=== PATIENT | female | born 1995 | race Caucasian/White ===

== ENCOUNTER 2019-12-09 13:18 | Emergency (ER) | payer OTHER ==
[~2019-12-09] VITALS: Ht 165.1 cm; Wt 60.1 kg
--- NOTE | 2019-12-09 14:15 | NUR ---
SURGICAL APPLIANCE FITTER: PT AMBULATORY WITH STEADY GAIT TO ROOM AT THIS TIME. ROVERTO
[2019-12-09 15:24] VITALS: BP 120/77
--- NOTE | 2019-12-09 15:25 | NUR ---
US complete, pt comfortable, no needs at this time.
== END 2019-12-09 16:18 | disposition home or self-care (01) ==
LOC: ED 15:19
DX: M79.662 Pain in left lower leg (principal); M79.89 Other specified soft tissue disorders
CPT/HCPCS: 99284

== ENCOUNTER 2020-10-24 10:02 | Outpatient (CLI) | payer OTHER ==
[~2020-10-24] VITALS: Ht 165.1 cm; Wt 64.1 kg
[2020-10-24 10:13] VITALS: BP 110/67
[2020-10-24 10:50] VITALS: BP 110/67
[2020-10-24] MEDS ORDERED: PREN1TAB10 PO (12:13)
== END 2020-10-24 12:27 | disposition home or self-care (01) ==
LOC: LDOP 10:02
PROVIDERS: ATTEND Obstetrics & Gynecology Maternal & Fetal Medicine
DX: O36.5930 Maternal care for other known or suspected poor fetal growth, third trimester, not applicable or unspecified (principal); Z3A.33 33 weeks gestation of pregnancy
CPT/HCPCS: 59025; 76819

== ENCOUNTER 2020-11-12 10:37 | Outpatient (CLI) | payer OTHER ==
[~2020-11-12] VITALS: Ht 165.1 cm; Wt 64.5 kg
[~2020-11-12 10:37] MED LIST: PREN1TAB10 PO
[2020-11-12 11:04] VITALS: BP 108/63
== END 2020-11-12 11:44 | disposition home or self-care (01) ==
LOC: LDOP 10:37
PROVIDERS: ATTEND Obstetrics & Gynecology Maternal & Fetal Medicine
DX: Z34.93 Encounter for supervision of normal pregnancy, unspecified, third trimester (principal); Z3A.36 36 weeks gestation of pregnancy
CPT/HCPCS: 59025

== ENCOUNTER 2020-11-27 09:02 | Outpatient (CLI) | payer OTHER ==
[~2020-11-27] VITALS: Ht 165.1 cm; Wt 65.0 kg
[2020-11-27 09:27] VITALS: BP 116/69
== END 2020-11-27 10:10 | disposition home or self-care (01) ==
LOC: LDOP 09:02
PROVIDERS: ATTEND Obstetrics & Gynecology Maternal & Fetal Medicine
DX: O36.5930 Maternal care for other known or suspected poor fetal growth, third trimester, not applicable or unspecified (principal); Z3A.38 38 weeks gestation of pregnancy
CPT/HCPCS: 59025; 76819

== ENCOUNTER 2020-12-04 15:23 | Outpatient (CLI) | payer OTHER ==
[~2020-12-04] VITALS: Ht 165.1 cm; Wt 65.0 kg
[2020-12-04] MEDS ORDERED: PLEASE ENTER HEIGHT AND WEIGHT MC SCH (18:00)
[2020-12-04] MEDS ORDERED: TERBUTALINE 1 MG/ML, 1ML SQ ONE (18:00)
== END 2020-12-04 17:05 | disposition home or self-care (01) ==
LOC: LDOP 15:23
PROVIDERS: ATTEND Obstetrics & Gynecology Maternal & Fetal Medicine
DX: Z34.93 Encounter for supervision of normal pregnancy, unspecified, third trimester (principal); Z3A.38 38 weeks gestation of pregnancy
CPT/HCPCS: 59025; 76815

== ENCOUNTER 2020-12-08 07:58 | Inpatient (IN) | payer OTHER ==
[~2020-12-08] VITALS: Ht 165.1 cm; Wt 65.0 kg
[2020-12-08] MEDS ORDERED: MISOPROSTOL 25 MCG TABLET ONE (20:22)
[2020-12-08] MEDS ORDERED: D5%-LACTATED RINGERS 1,000 ML IV SCH (20:30)
[2020-12-08] MEDS ORDERED: TERBUTALINE 1 MG/ML, 1ML IVPush PRN (20:30)
[2020-12-08] MEDS ORDERED: CALCIUM CARBONATE 500 MG TAB.CHEW PO PRN (20:30)
[2020-12-08] MEDS ORDERED: FENTANYL PF 100 MCG/2ML IVPush PRN (20:30)
[2020-12-08] MEDS ORDERED: SODIUM CITRATE/CITRIC ACID 30 ML UDC PO PRN (20:30)
[2020-12-08] MEDS ORDERED: ONDANSETRON 2MG/ML, 2ML IVPush PRN (20:30)
[2020-12-08] MEDS: LACTATED RINGERS 1,000 ML IV SCH (20:30)
[2020-12-08] MEDS ORDERED: TERBUTALINE 1 MG/ML, 1ML SQ PRN (20:30)
[2020-12-08] MEDS ORDERED: OXYTOCIN 30U/ 0.9% NaCL 500ML 500 ML IV ONE (20:30)
[2020-12-08] MEDS ORDERED: METOCLOPRAMIDE 5 MG/ML, 2ML IVPush PRN (20:30)
[2020-12-08] MEDS ORDERED: PLEASE ENTER HEIGHT AND WEIGHT MC SCH (20:30)
[2020-12-08 20:46] LABS: BASOPHILS % (AUTO) 1 % (0-1); EOSINOPHILS % (AUTO) 1 % (1-7); LYMPHOCYTES % (AUTO) 24 % (22-44); MEAN CORPUSCULAR HEMOGLOBIN 31.4 pg (27.0-34.8); MEAN CORPUSCULAR HGB CONC 35.4 g/dL (32.4-35.8); MEAN PLATELET VOLUME 9.9 fL (7.4-10.4); MONOCYTES % (AUTO) 8 % (2-9); NEUTROPHILS % (AUTO) 67 % (42-75); PLATELET COUNT 172 x10^3/uL (130-400); RED BLOOD COUNT 4.01 x10^6/uL (3.82-5.3); RED CELL DISTRIBUTION WIDTH 14.4 % (9.6-15.2)
[2020-12-08] MEDS ORDERED: MISOPROSTOL 200 MCG TABLET ONE (21:17)
[2020-12-08] MEDS ORDERED: LIDOCAINE 1%, 20ML ONE (21:17)
[2020-12-08] MEDS ORDERED: NEWBORN KIT ONE (21:17)
[2020-12-08] MEDS ORDERED: MISOPROSTOL 25 MCG TABLET VG PRN (21:30)
[2020-12-08] MEDS ORDERED: DIPHENHYDRAMINE 50 MG/ML, 1ML IVPush PRN (21:30)
[2020-12-08] MEDS ORDERED: DOCU-131 PO (21:50)
[2020-12-08] MEDS ORDERED: ACYC500V OP (21:50)
[2020-12-08 21:53] VITALS: BP 120/70
[2020-12-09] MEDS: LACTATED RINGERS 1,000 ML IV SCH (02:45)
[2020-12-09] MEDS: FENTANYL PF 100 MCG/2ML IV PRN ×2 (08:10→09:59)
[2020-12-09] MEDS ORDERED: FENTANYL PF 100 MCG/2ML IV PRN (08:30)
[2020-12-09] MEDS ORDERED: OXYTOCIN 30U/ 0.9% NaCL 500ML 500 ML ONE ×2 (09:28→10:54)
[2020-12-09] MEDS ORDERED: BUPIVACAINE 0.25% ONE (10:01)
[2020-12-09] MEDS ORDERED: FENTANYL/BUPIV./NS/PF 250 ML EPIDCONT ONE (10:01)
[2020-12-09] MEDS ORDERED: FENTANYL/BUPIV./NS/PF 250 ML EPIDCONT SCH (10:30)
[2020-12-09] MEDS ORDERED: LACTATED RINGERS 1,000 ML IVBOLUS PRN (10:30)
[2020-12-09] MEDS ORDERED: EPHEDRINE 50 MG/ML, 1ML IVPush PRN (10:30)
[2020-12-09] MEDS ORDERED: LACTATED RINGERS 1,000 ML IV SCH (10:30)
[2020-12-09] MEDS ORDERED: IBUPROFEN 600 MG TABLET ONE (10:53)
[2020-12-09] MEDS ORDERED: DIPH,PERTUSS(ACELL),TET VAC/PF NC IM-VACC PRN (11:00)
[2020-12-09] MEDS ORDERED: CARBOPROST TROMETHAMINE 250 MCG/ML, 1ML IM PRN (11:00)
[2020-12-09] MEDS ORDERED: METHYLERGONOVINE 0.2 MG/ML IM PRN (11:00)
[2020-12-09] MEDS ORDERED: ACETAMINOPHEN 325 MG TABLET PO PRN ×2 (11:00)
[2020-12-09] MEDS ORDERED: MISOPROSTOL 200 MCG TABLET PR PRN (11:00)
[2020-12-09] MEDS ORDERED: OXYcodone/APAP 5/325MG TABLET PO PRN ×2 (11:00)
[2020-12-09] MEDS ORDERED: SIMETHICONE 80 MG CHEW TAB PO PRN (11:00)
[2020-12-09] MEDS: OXYTOCIN 30U/ 0.9% NaCL 500ML 500 ML IV SCH ×2 (11:45→21:00)
[2020-12-09 13:10] VITALS: BP 104/67
[2020-12-09 17:00] VITALS: BP 109/73
[2020-12-09] MEDS: IBUPROFEN 600 MG TABLET PO PRN ×2 (17:02→23:33)
[2020-12-09 20:30] VITALS: BP 110/69
[2020-12-09] MEDS: DOCUSATE 100 MG CAPSULE PO PRN (23:33)
[2020-12-09 23:35] VITALS: BP 99/61
[2020-12-10 03:30] LABS: BASOPHILS % (AUTO) 1 % (0-1); EOSINOPHILS % (AUTO) 1 % (1-7); LYMPHOCYTES % (AUTO) 24 % (22-44); MEAN CORPUSCULAR HEMOGLOBIN 31.8 pg (27.0-34.8); MEAN CORPUSCULAR HGB CONC 35.3 g/dL (32.4-35.8); MEAN PLATELET VOLUME 9.3 fL (7.4-10.4); MONOCYTES % (AUTO) 7 % (2-9); NEUTROPHILS % (AUTO) 68 % (42-75); PLATELET COUNT 136 x10^3/uL (130-400); RED BLOOD COUNT 3.41 x10^6/uL (3.82-5.3); RED CELL DISTRIBUTION WIDTH 14.2 % (9.6-15.2)
[2020-12-10 04:09] VITALS: BP 99/61
[2020-12-10 07:45] VITALS: BP 104/61
[2020-12-10] MEDS: DOCUSATE 100 MG CAPSULE PO PRN (07:48)
[2020-12-10] MEDS: IBUPROFEN 600 MG TABLET PO PRN (07:48)
[2020-12-10] MEDS ORDERED: PRENATAL VIT/IRON/FA 1 EACH TABLET PO SCH (09:00)
[2020-12-10] MEDS ORDERED: IBUP-1222 PO (11:51)
== END 2020-12-10 13:25 | disposition home or self-care (01) | DRG 807 ==
LOC: LDIP 20:06 → 2NW 12-09 13:00
PROVIDERS: ADMIT Obstetrics & Gynecology Maternal & Fetal Medicine; ATTEND Obstetrics & Gynecology Maternal & Fetal Medicine
PROC: 10E0XZZ Delivery of Products of Conception, External Approach (ICD-10-PCS; principal; 2020-12-08)
PROC: 3E0P7VZ Introduction of Hormone into Female Reproductive, Via Natural or Artificial Opening (ICD-10-PCS; 2020-12-08)
DX: O36.5930 Maternal care for other known or suspected poor fetal growth, third trimester, not applicable or unspecified (principal); Z37.0 Single live birth; Z3A.39 39 weeks gestation of pregnancy; Z20.822 Contact with and (suspected) exposure to COVID-19
CPT/HCPCS: 36415; 85025; 86592; 86850; 86900; 87635; G0378; J3010; J2590; J7120